=== PATIENT | female | born 1985 | race American Indian/Alaskan Native ===

== ENCOUNTER 2018-12-12 11:40 | Emergency (ER) | payer MEDICAID, OTHER ==
--- NOTE | 2018-12-12 13:18 | Emergency Department Report ---
HPI - General Chief Complaint: Chest Pain Time Seen by Provider: 12/12/18 12:48 - HPI HPI: This is a 33-year-old female with no problem medical history who presents to ED complaining of left axis Center sided chest pain radiating to her right shoulder and back that started around 3 AM this morning. Patient states she does not recall lifting any heavy substances as shortness activity. Patient states that pain is worsened with movement, standing up and laying down. Patient denies fevers/chills/nausea vomiting/abdominal pain ED Past Medical Hx - Past Medical History Hx Hypertension: Yes Additional medical history: Sinusitis - Surgical History Past Surgical History?: No - Social History Smoking Status: Never Smoker Substance Use Type: None - Medications Home Medications: Home Medications Medication Instructions Recorded Confirmed Last Taken Type Azithromycin [Zithromax] 500 mg PO QDAY #3 tablet 03/29/14 Unknown Rx HYDROcodone/APAP 5-325 [[place] 1 each PO Q6HR PRN #20 tablet 03/29/14 Unknown Rx 5/325 mg] Lisinopril [Zestril] 20 mg PO QDAY 03/29/14 03/29/14 03/29/14 History Prednisone [predniSONE 5 mg (6-Day 5 mg PO .TAPER #1 tab.ds.pk 03/29/14 Unknown Rx Pack, 21 Tabs)] Ibuprofen [Motrin] 800 mg PO Q8H #30 tablet 08/25/14 Unknown Rx methOCARBAMOL [Robaxin] 500 mg PO BID #30 tab 08/25/14 Unknown Rx traMADol [Ultram 50 MG tab] 50 mg PO Q6HR PRN #20 tablet 08/25/14 Unknown Rx Cyclobenzaprine [Flexeril 10 MG 10 mg PO QHS #30 tablet 12/12/18 Unknown Rx TAB] Naproxen [Naprosyn] 500 mg PO BID #30 tablet 12/12/18 Unknown Rx ED Review of Systems ROS: Stated complaint: CHEST PAIN/EXTREME Other details as noted in HPI Comment: All other systems reviewed and negative Physical Exam - Physical Exam Vital Signs: Vital Signs 12/12/18 11:44 Temperature 98.7 F Pulse Rate 101 H Respiratory 20 Rate Blood Pressure 136/103 O2 Sat by Pulse 99 Oximetry Physical Exam: GENERAL: Alert and oriented x3, no apparent distress, Normal Gait, atraumatic. HEAD: Head is normocephalic and a-traumatic. MOUTH:Mouth is well hydrated and without lesions. Tonsils nonerythematous or swollen, Uvula midline, Tongue not elevated. Mucous membranes are moist. Posterior pharynx clear, no exudate or lesions. Patent airways. NECK: Supple. Non edematous, No carotid bruits. No lymphadenopathy or thyromegaly. No C-spine tenderness LUNGS: Symetrical with respiration, No wheezing, no rales or crackles, CTAB. HEART: S1, S2 present, regular rate and rhythm without murmur, no rubs, no gallops. Non tender to palpation ABDOMEN: No organomegaly was noted,Positive bowel sounds, soft, and non-dis tended. . Nontender to palpation on all Quadrants, NO CVA tenderness. BACK: Full range of motion, no spinal tenderness, nontender to palpation. SKIN: Warm and dry, No lesions, No ulceration or induration present. ED Course Vital Signs 12/12/18 11:44 Temperature 98.7 F Pulse Rate 101 H Respiratory 20 Rate Blood Pressure 136/103 O2 Sat by Pulse 99 Oximetry ED Medical Decision Making - Lab Data Result diagrams: 12/12/18 13:24 12/12/18 13:24 - Radiology Data Radiology results: report reviewed, image reviewed cc: DELMA GILMAN Fluoro Time In Minutes: ROUTINE CHEST, TWO VIEWS: HISTORY: chest pain. The trachea, heart, mediastinal contour, lung diego and bony thorax are unremarkable. IMPRESSION: Unremarkable chest x-ray. Transcribed By: TTR Dictated By: JULI PORTER JR, MD Electronically Authenticated By: JULI PORTER JR, MD Signed Date/Time: 12/12/18 0385 - Medical Decision Making 33-year-old female presents to ED with Costochondral chest pain CBC, troponin, BMP, chest x-ray obtained all within normal limits Discussed findings with the patient. Patient is in no acute or respiratory distress Patient discharged on pain medication. I discussed the patient's symptoms worsen or new onset of symptoms return to ED immediately. Critical care attestation.: If time is entered above; I have spent that time in minutes in the direct care of this critically ill patient, excluding procedure time. ED Disposition Clinical Impression: Costochondral chest pain Disposition: DC-01 TO HOME OR SELFCARE Is pt being admited?: No Does the pt Need Aspirin: No Condition: Stable Instructions: Chest Pain (ED), Costochondritis (ED) Additional Instructions: Make sure to follow up with the primary care physician as discussed. Take all your medications as you've been prescribed. She did take your blood pressure medication daily. If you have any worsening symptoms or develop new symptoms please return to ED immediately. Prescriptions: Cyclobenzaprine [Flexeril 10 MG TAB] 10 mg PO QHS #30 tablet Naproxen [Naprosyn] 500 mg PO BID #30 tablet Referrals: LILA ROBERTS MD [Primary Care Provider] - 3-5 Days Forms: Accompanied Note, Work/School Release Form(ED) Time of Disposition: 14:31
[2018-12-12] MEDS ORDERED: TORADOL IM ONE (13:38)
[2018-12-12] MEDS ORDERED: TORADOL ONE ×2 (13:42→13:44)
[2018-12-12 13:46] LABS: Hematocrit 38.5 % (30.3-42.9); Hemoglobin 12.6 gm/dl (10.1-14.3); Mean Corpuscular HGB Conc 33 % (30-34); Mean Corpuscular Volume 86 fl (79-97); Platelet Count 283 K/mm3 (140-440); Red Blood Count 4.46 M/mm3 (3.65-5.03); Red Cell Distribution Width 14.8 % (13.2-15.2)
--- NOTE | 2018-12-12 13:52 | XRay Report ---
ROUTINE CHEST, TWO VIEWS: HISTORY: chest pain. The trachea, heart, mediastinal contour, lung diego and bony thorax are unremarkable. IMPRESSION: Unremarkable chest x-ray.
[2018-12-12 14:02] LABS: BUN/Creatinine Ratio 13; Blood Urea Nitrogen 9 mg/dL (7-17); Calcium 9.3 mg/dL (8.4-10.2); Hemolysis Index 7
[2018-12-12] MEDS ORDERED: FLEXERIL PO ONE (14:26)
[2018-12-12 14:58] VITALS: BP 126/98
== END 2018-12-12 14:40 | disposition home or self-care (01) ==
LOC: ED 11:40
DX: M94.0 Chondrocostal junction syndrome [Tietze] (principal); M25.511 Pain in right shoulder; I10 Essential (primary) hypertension
CPT/HCPCS: 36415; 71046; 80048; 84484; 85027; 93005; 93010; 96372; 99284; J1885

== ENCOUNTER 2019-06-30 17:13 | Emergency (ER) | payer OTHER | END 2019-06-30 18:30 | LOC: ED 17:13 | DX: N93.9 Abnormal uterine and vaginal bleeding, unspecified (principal); Z53.21 Procedure and treatment not carried out due to patient leaving prior to being seen by health care provider ==